=== PATIENT | female | born 1950 | race Caucasian/White ===

== ENCOUNTER 2017-11-12 21:46 | Inpatient (IN) | payer OTHER ==
[~2017-11-12] VITALS: Ht 175.3 cm; Wt 83.9 kg
--- NOTE | 2017-11-12 21:50 | ED PSYCHIATRIC COMPLAINT ---
History of Present Illness General Chief Complaint: Psychiatric Related Complaint Stated Complaint: BIBA, +SI Source: patient, police Exam Limitations: no limitations Vital Signs & Intake/Output Vital Signs & Intake/Output Vital Signs Date Time Temp Pulse Resp B/P B/P Pulse O2 O2 Flow FiO2 Mean Ox Delivery Rate 11/13 0041 96.5 74 20 128/62 95 Room Air 11/12 2148 96.0 80 20 147/73 97 Room Air ED Intake and Output 11/13 0000 11/12 1200 Intake Total 1000 Output Total Balance 1000 Intake, IV 1000 Patient 190 lb Weight Allergies Coded Allergies: NO KNOWN ALLERGIES (07/25/14) Triage Nurses Notes Reviewed? yes Onset: Gradual Duration: constant Timing: recent history Severity: severe Severity Numbers: 10 HPI: Patient is a 67-year-old female with a past medical history of depression hypertension hyperlipidemia was patient was brought in by police custody and ambulance for concerns of sending text messages to her daughter for thoughts of harming herself where police arrived on the scene and admitted that she wanted to hurt herself, she ingested 2 handfuls of ibuprofen. She lives in a private residence with son She does admit to drinking alcohol today (Hernan Brooks) Past History Travel History Traveled to [place] past 21 day No Medical History Any Pertinent Medical History? see below for history Cardiovascular: hypertension, HYPERLIPIDEMIA Psychiatric: depression Tetanus Vaccine: 07/25/14 Surgical History Surgical History: non-contributory Psychosocial History What is your primary language Faroese Family History Hx Contributory? No (Hernan Brooks) Review of Systems Review of Systems Constitutional: Reports: no symptoms. EENTM: Reports: no symptoms. Respiratory: Reports: no symptoms. Cardiovascular: Reports: no symptoms. GI: Reports: no symptoms. Genitourinary: Reports: no symptoms. Musculoskeletal: Reports: no symptoms. Skin: Reports: no symptoms. Neurological/Psychological: Reports: see HPI. Hematologic/Endocrine: Reports: no symptoms. Immunologic/Allergic: Reports: no symptoms. All Other Systems: Reviewed and Negative (Hernan Brooks) Physical Exam Physical Exam General Appearance: no apparent distress, alert, comfortable Head: atraumatic Eyes: Bilateral: normal appearance. Ears, Nose, Throat: hearing grossly normal Neck: normal inspection Respiratory: chest non-tender, no respiratory distress Cardiovascular: regular rate/rhythm Neurological/Psychiatric: no motor/sensory deficits, awake, depressed affect Appearance/Memory/Insight: appropriate appearance, appropriate insight Behavoir/Eye Contact/Speech: cooperative Thoughts/Hallucinations: normal thought pattern, no apparent hallucination Skin: intact, normal color SAD PERSONS SAD PERSONS Response Value Age <19 or >45 years? yes 1 Depression/Hopelessness? yes 2 Organized/Serious Attempt yes 2 Social Support? has support 0 Stated Future Intent? yes 2 Total 7 SAD PERSONS Done? yes (Keanu HARDY,Hernan) Progress Differential Diagnosis: drug intoxication, drug overdose, drug withdrawal, electrolyte abnormality, encephalitis, hypoglycemia, hypothyroidism, IC hem/mass /tumor, meningitis Plan of Care: Orders Procedure Date/time Status Regular Diet 11/13 B Active Continuous Observation Monitor 11/12 2152 Active URINE DRUG SCREEN FOR ER ONLY 11/12 2152 Complete ETHANOL 11/12 2152 Complete COMPREHENSIVE METABOLIC PANEL 11/12 2152 Complete CBC WITHOUT DIFFERENTIAL 11/12 2152 Complete ED CRISIS PSYCH CONSULT 11/12 2152 Active Current Medications Sig/Gustabo Start time Last Medication Dose Stop Time Status Admin Atorvastatin Calcium 40 MG DAILY 11/13 899 UNVr (Lipitor) Fluoxetine HCl 40 MG DAILY 11/13 899 UNVr (Prozac) Hydrochlorothiazide 12.5 MG DAILY 11/13 899 UNVr (Hydrodiuril) Levothyroxine Sodium 0.025 MG DAILY 11/13 899 UNVr (Synthroid) Lisinopril 20 MG DAILY 11/13 899 UNVr (Prinivil) Laboratory Tests 11/12/175: Urine Opiates Screen < 100, Methadone Screen < 40, Barbiturate Screen < 60, Ur Phencyclidine Scrn < 6.00, Amphetamines Screen < 100, U Benzodiazepines Scrn < 85, Urine Cocaine Screen < 50, Urine Cannabis Screen < 5.00 11/12/177: Anion Gap 14, Estimated GFR > 60, BUN/Creatinine Ratio 32.9 H, Glucose 105 H, Calcium 9.2, Total Bilirubin 0.4, AST 54 H, ALT 23, Alkaline Phosphatase 69, Total Protein 7.0, Albumin 4.2, Globulin 2.8, Albumin/Globulin Ratio 1.5, CBC w Diff NO MAN DIFF REQ, RBC 4.02 L, MCV 86.8, MCH 29.6, MCHC 34.1, RDW 13.6, MPV 7.6, Gran % 70.9, Lymphocytes % 17.5 L, Monocytes % 8.5, Eosinophils % 2.7, Basophils % 0.4, Absolute Granulocytes 6.9 H, Absolute Lymphocytes 1.7, Absolute Monocytes 0.8 H, Absolute Eosinophils 0.3, Absolute Basophils 0, Serum Alcohol 100.0 Patient upon initial presentation is in no apparent distress however does have depressed affect and concerns of depression and suicide ideation Patient denies any abdominal pain chest pain nausea vomiting or heartburn symptoms. Patient was prophylactically administered Protonix due to the ingestion of unknown Spons of July however she does state that she took approximately 20 tablets at 8 PM was approximately congestion time 0001-patient was reevaluated and will be on hold in the emergency room for further evaluation and will require a crisis consult, discussed handoff to Dr. De Paz Patient again resting comfortably at bedside nontender abdomen denies any symptoms Hand-Off Endorsed To: Flaquito De Paz MD Endorsed Time: 0100 Pending: consult (Hernan Brooks) Hand-Off Endorsed To: Jim Brown MD Endorsed Time: 0700 Pending: consult (Flaquito De Paz MD) Departure Departure Disposition: STILL A PATIENT Condition: Stable Clinical Impression Primary Impression: Depression Secondary Impressions: Alcohol use, Suicidal ideation Referrals: Francisca Batres MD (PCP/Family) Departure Forms: Customer Survey General Discharge Information (Hernan Brooks) PA/MANUFACTURING APPLICATIONS ENGINEER Co-Sign Statement Statement: ED Attending supervision documentation- [X] I saw and evaluated the patient. I have also reviewed all the pertinent lab results and diagnostic results. I agree with the findings and the plan of care as documented in the PA's/MANUFACTURING APPLICATIONS ENGINEER's documentation. [X] I have reviewed the ED Record and agree with the PA's/MANUFACTURING APPLICATIONS ENGINEER's documentation. [] Additions or exceptions (if any) to the PAs/MANUFACTURING APPLICATIONS ENGINEER's note and plan are summarized below: [] (Flaquito De Paz MD) Critical Care Note Critical Care Note Critical Care Time: 30-74 min (Hernan Brooks)
[2017-11-12 22:24] LABS: ABSOLUTE BASOPHIL COUNT 0 /CUMM (0.0-0.2); ABSOLUTE EOSINOPHIL COUNT 0.3 /CUMM (0.0-0.7); ABSOLUTE GRANULOCYTE CT 6.9 /CUMM (1.4-6.5); ABSOLUTE LYMPH COUNT 1.7 /CUMM (1.2-3.4); ABSOLUTE MONOCYTE COUNT 0.8 /CUMM (0.10-0.60); BASOPHIL % 0.4 % (0.0-2.0); EOSINOPHIL % 2.7 % (0-5); GRANULOCYTE % 70.9 % (42.2-75.2); HEMATOCRIT 34.9 % (37-47); MEAN CORPUSCULAR HGB 29.6 PG (27.0-31.0); MEAN CORPUSCULAR HGB CONC 34.1 G/DL (33.0-37.0); MEAN CORPUSCULAR VOLUME 86.8 FL (81.0-99.0); MEAN PLATELET VOLUME 7.6 FL (7.4-10.4); PLATELET COUNT 251 /CUMM (130-400); RBC DISTRIBUTION WIDTH 13.6 % (11.5-14.5); RED BLOOD CELL CT 4.02 /CUMM (4.20-5.40); WHITE BLOOD CELL COUNT 9.7 /CUMM (4.8-10.8)
[2017-11-13] MEDS ORDERED: FLUOXETINE HCL40 M1 PO (08:11)
[2017-11-13] MEDS ORDERED: LISINOPRIL-HCT1 EACH PO (08:11)
[2017-11-13] MEDS ORDERED: ATORVASTATIN CA40 M1 PO (08:12)
[2017-11-13] MEDS ORDERED: LEVOTHYROXINE25 MCG PO ×2 (08:12)
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
[2017-11-13 17:36] VITALS: BP 115/56
[2017-11-13 20:02] VITALS: BP 115/56
--- NOTE | 2017-11-14 02:57 | History & Physical ---
General Information and HPI History of Present Illness: This is a 67-year-old female with a past medical history significant for hypertension hyperlipidemia and hypothyroidism who was admitted to the inpatient psychiatry unit for suicide attempt by taking approximately 20 ibuprofen. Allergies/Medications Allergies: Coded Allergies: NO KNOWN ALLERGIES (07/25/14) Home Med list Atorvastatin Calcium 40 MG TABLET 1 TAB PO DAILY CHOLESTEROL (Reported) Fluoxetine HCl 40 MG CAPSULE 1 CAP PO QAM MENTAL HEALTH (Reported) Levothyroxine Sodium 25 MCG TABLET 1 TAB PO MoTuWeThFr THYROID (Reported) Levothyroxine Sodium 25 MCG TABLET 2 TAB PO SuSa THYROID (Reported) Lisinopril/Hydrochlorothiazide (Lisinopril-Hctz 20-12.5 MG Tab) 20 MG-12.5 MG TABLET 1 TAB PO DAILY HEART (Reported) Compliance With Home Meds: UNKNOWN Past History Travel History Traveled to [place] past 21 day No Medical History Blood Transfusion Hx: No Cardiovascular: hypertension, HYPERLIPIDEMIA Respiratory: COPD Psychiatric: depression 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 Exam & Diagnostic Data Last 24 Hrs of Vital Signs/I&O Vital Signs Date Time Temp Pulse Resp B/P B/P Pulse O2 O2 Flow FiO2 Mean Ox Delivery Rate 11/13 2001 98.9 88 115/56 11/13 1736 98.7 88 115/56 11/13 1711 98.2 72 144/68 99 11/13 1518 98.4 70 20 136/77 96 11/13 1146 98.7 74 18 154/79 95 Room Air Room Air 11/13 0900 97.9 76 20 149/66 08 0557 97.9 76 20 149/66 97 Room Air Intake & Output 11/14 0800 11/14 0000 11/13 1600 Intake Total Output Total Balance Patient 83.915 kg Weight Physical Exam General Appearance Alert Skin No Rashes Cardiovascular Regular Rate, Normal S1, Normal S2, No Murmurs Lungs Clear to Auscultation Abdomen Normal Bowel Sounds, Soft, No Tenderness Assessment/Plan Assessment: This is a 67-year-old female with a past medical history significant for hypertension, hyperlipidemia, hypothyroidism admitted to the inpatient psychiatry unit for a suicide attempt by overdosing on ibuprofen. Currently she is medically stable. recommendations include to continue her home regimen and consider checking a TSH level if not done recently. As Ranked By This Provider Problem List: 1. Depression 2. Suicidal ideation 3. Alcohol use Core Measures/Misc (12/30) Acute Coronary Syndrome ACS Diagnosis: No Congestive Heart Failure Congestive Heart Failure Diagnosis No Cerebrovascular Accident CVA/TIA Diagnosis: No VTE (View Protocol) VTE Risk Factors No risk factors No Mechanical VTE Prophylaxis d/t LowRisk-No Interven Req'd No VTE Pharm Prophylaxis d/t LowRisk-No Interven Req'd Sepsis (View protocol) Sepsis Present: No If YES complete Sepsis Event Note If YES complete Sepsis Event Note
[2017-11-14 07:42] VITALS: BP 120/69
--- NOTE | 2017-11-14 10:19 | CPS PROVIDER INIT ASMT PSYCH ---
Psychiatric Admission Vessel Engineer's Note Reviewed: Yes Patient Seen and Examined: Yes (Seen with Social Work Taxonomist.) Identifying Information: 67 yo WWF with apparent hx depression, who was admitted on 11/13/17 on a voluntary basis, referred by ER. Chief Complaint: Overdosed with "maybe 20" ibuprofen while intoxicated. Reaction to Hospitalization: So-so. Feels she needs to be here, wants to get her life together, wishes she didn't have to be here in order to do that. History of Present Illness Onset of Illness: Reports last 11 years have been difficult, as she lost her , both parents and a number of friends to cancer. Recently stressed about son who has bipolar disorder and recent argument with a daughter. Circumstances Leading to Admission: Ibuprofen OD while intoxicated. Drinking 1 bottle of wine/day. Problem(s) Justifying Need for Admission: OD. Other HPI: "Well, I was drinking too much (~1 bottle) wine and took a bunch of ibuprofen, like a handful." Had a weekend in [place]. Under stress. Had stressful conversation with daughter. Stressed caring for bipolar son. [place] kind of useless. Thought maybe everyone would be better off with her life insurance. Wants to survive. Has trip to [facility] in the fall and a pass to [facility]. Sleep: good last night, MNA at home. Minimal coffee use. (Sleep likely disturbed from alcohol.) Appetite: probably too good sometimes. Denies weight change. Energy: it's okay, a little tired at the end of the workday. Tolerating current medications well, without complaint. Case and treatment plan discussed in team meeting. Denying SI. Tearful and depressed. Worried about son with bipolar disorder. Past Psychiatric History Past Diagnosis(es)- if any: Likely depression. Past Precipitating Factors- if any: Deaths of family members/friends. - Include inpatient and outpatient treatment Treatment History: Seeing PCP Dr. Batres. Past therapy, none in years. Inpatient: none. History of Suicide Attempts or Gestures No prior attempts or self-harm. Substance Abuse History: Quit tobacco 15 years ago. Alcohol: 1 bottle of wine/day x years. Denies DTs or withdrawal seizures. No drugs. Allergies: Coded Allergies: NO KNOWN ALLERGIES (07/25/14) Home Med List: Lipitor 40 mg daily Prozac 40 mg daily Levothyroixine 0.25 mg daily - and 0.5 mg daily Sat/Sun Lisinopril/HCTZ 20/12.5 daily, coming off HCTZ because of urinary frequency - Include any medical condition(s) that may - impact the patient's recovery/remission Past Medical History: HTN Mild COPD Hyperlipidemia Hyponatremia now Hypothyroidism Past History Medical History Blood Transfusion Hx: No Cardiovascular: hypertension, HYPERLIPIDEMIA Respiratory: COPD Psychiatric: depression LABEL TACKER/Reproductive: FRANKIE History of MRSA: Yes History of VRE: No History of CDIFF: No Isolation History: Standard Tetanus Vaccine: 07/25/14 Surgical History Surgical History: none Psychiatric Family/Social Hx Family History Psychiatric Illness: Son: bipolar, had ECT. Pat aunt, PGM, brother: depression. Mother: psychological issues. Substance Use: Sister drinks wine. Suicides: Son attempted a few times. Social History Living Situation: Lives with 46 yo son. Significant Relationships (family/friends): Has 2 daughters, 43 and 40, and son, 46. 11/27/06, likely from [place]. Parents are . Sister in [facility]. A brother at age 15 from a brain aneurysm. Brother in [place]. Education: A couple of years of college. 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 Legal: No arrest. Healthly Behaviors Screening Tobacco Screening Tobacco Use from ED Docu: Never used - If tobacco counseling indicated - the following topics are required. - #1 Recognizing dangerous situations. - #2 Coping Skills. - #3 Basic information about quitting. Status of Tobacco Cessation Counseling: Not Applicable Cessation Med Status Not Applicable Alcohol Screening - ETOH screen POS if BAL >=80 or Audit-C>= M4/F3 Audit-C Score from Diag Assess: 10 Blood Alcohol Level: Laboratory Tests 11/12 2206 Toxicology Serum Alcohol (<10 MG/DL) 100.0 Alcohol Use Screening Results: Pos per Audit C &/or BAL - If ETOH counseling indicated - the following topics are required. - #1 Express concern about the patient's - drinking at unhealthy levels, include informing - of national norms for moderate drinking: - men <= 14 drinks/week, max 4 drinks/occasion - women <= 7 drinks/week, max 3 drinks/occasion - #2 Providing feedback, including linking alcohol to - negative physical effects (liver injury, hypertension) - negative emotional effects (relationship problems and - depression) - negative occupational consequences (reduced work - performance) - #3 Advising the patient to abstain from alcohol or - to drink below national norms for moderate drinking - (as listed above). Status of ETOH Use Counseling: #1, #2 AND #3 Completed. Metabolic Screening - Screen if on a Neuroleptic Medication - Metabolic screening should include: - Blood Pressure, BMI, Glucose or Hgb A1c, & a - Lipid profile from within the past 365 days. Metabolic Screening ([x]) Not Applicable, patient not on a neuroleptic. OR () Patient on a neuroleptic(s) . Enter below results for Hemoglobin A1C, and lipid panel if obtained during the last 365 days. BMI: 27.000 Blood Pressure: 140/78 Laboratory Results From [facility] (If applicable): Exam and Plan Mental Status Examination Ambulation Status: Gait unremarkable. Appearance: Casually dressed WF in NAD. Attitude towards examiner: Calm, polite and cooperative. Psychomotor activity: There is no psychomotor agitation/retardation. Behavior: Unremarkable. Quality of speech: Normal in volume, rate and tone. Affect: Calm and blunted to euthymic. Mood: "Fine, a little anxious, but I'm fine." Sad probably ~7/10. Anxiety 7-8/10. Denies feeling hopeless, helpless, worthless or guilty. Suicidal Ideation: Denies active and passive SI. Reports future-focus. Homicidal Ideation: Denies HI. Hallucinations: Denies AH and VH. Paranoid/Delusional Material: Denies PI and magical hayden. Difficulties with thought organization: None. Insight: Good. Judgment: Was poor, improved now. Orientation: Ox3. Cognition: Grossly intact. Memory Function: Grossly intact. Estimate of intellectual functioning: Average. Assets/Strengths Patient Identified Assets/Strengths: Sense of humor. Good oriental rug repairer. Stain glass. Impression/Plan Impression and Plan: The patient is here after an intentional ibuprofen OD while intoxicated. She has some family stressors that may have contributed. - Include all active medical diagnosis that require tx DSM 5 Diagnosis(es): Unspecified depression. Alcohol use disorder. Hypertension. HLD. Hypothyroidism. Mild COPD. Hyponatremia. - Initial Tx Plan for Active Psych & Medical Conditions Treatment Plan: The patient will be monitored on the unit for safety, alcohol withdrawal and mood disorder. We will check repeat lytes in am. Low sodium could be due to HCTZ and/or Prozac. I tried to call Dr. Batres and she will be away until next Saturday. Consider discontinuation of HCTZ. Consider increase in Prozac dose if sodium improves. A family meeting will be important. Anticipate once clinically stable, that the patient will be discharged to home and son and be referred to IOP. - Factors that would help patient function - in a less restrictive setting. Factors: Not suicidal.
--- NOTE | 2017-11-14 11:16 | SOCIAL WORKER PROG NOTE PSYCH ---
Social Work Progress Note Progress Note I Giuseppe Chirinos ([facility] sport intern) along with Doctor Zhang (psychiatrist) met with Radha this morning. She appeared well groomed wearing a Tshirt and shorts. She was alert, cooperative, and engaged in session. She reported having mixed feelings about being in the hospital since this is her first inpatient hospitalization. She understands that she ended up here due to her recent suicide attempt which was made by taking a handful of ibuprofen along with drinking alcohol. Dr Zhang did some alcohol counseling with the patient informing her of the harmful effects of substance use. The patient reported drinking one bottle of wine everyday for years. Radha has only stopped drinking for one to two days and did not experience withdrawl symptoms. She has not been to a therapist in years. She has experienced several life stressors that include: her dying eleven years ago, a brother along with her parents , friends passing away due to cancer,and currently living with her adult son who has Bipolar disorder. The patient expressed that she was glad she survived the suicide attempt. As a survivor she can go on her planned trip and learn how to ski.The patient identified that there is a family history of depression. She mentioned she used to smoke. Her son also made a suicide attempt in the past. The patient questions whether she is helping or hindering her son with Bipolar Disorder. On a scale of 0 to 10 ( zero being absent and 10 being severe) the patient reported both anxiety and depression to be a seven today. She is not having any trouble eating or sleeping here on the unit thus far. The patient intends to reduce alcohol use and is agreeable to doing an evening dual IOP at [place]. The patient was also agreeable to have a family meeting. I called Elizabeth (her daughter) and left a voicemail to schedule a family meeting with her, Claudia (her daughter), and Radha's son
[2017-11-14 12:04] VITALS: BP 140/78
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
--- NOTE | 2017-11-14 14:58 | SOCIAL WORKER TX PLAN PSYCH ---
Treatment Plan - Please Document: - Evidence that there is ongoing collaboration between - the patient and the interdisciplinary team, - including the patient's active participation and - responsibility for engaging in the treatment regimen, - and that the treatment plan is individualized and - relevant to the patient's conditions. - Treatment plan should reflect documentation indicating - that all active therapeutic efforts are included. Strengths/Capabilities: 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 Patient has family support Physical Limitations (Interventions): none Patient Identified Trmt Goals: "I want to get my life together" The patient no longer wants to feel symptoms of depression. Discharge Plan: To be on medications that do not cause her to have a low sodium level. The discharge plan would be for her to return home to her son once her mood and medications are stable. The patient is agreeable to do an evening IOP. Problem/Goals #1 Problem #1: depression Goal (Short Term): The patient will be able to identify triggers and symptoms of her depression. The patient with meet with her psychiatrist daily to discuss her medications and any side effects she experiences. Goal (Half-Way): The patient will be able to identify three coping skills to help her manage symptoms of depression. Interventions: The patient can benefit from several groups on the unit that include: focus group, meditations, journaling and a coping skills group. The patient will work with the nursing home social worker to reframe negative thoughts. Modalities: Motivational interviewing Problem/Goals #2 Problem #2: alcohol dependence/abuse Goal (Short Term): The client will be monitored on the unit for safety and monitored for withdrawl symptoms. Goal (Half-Way): The client will continue to learn about the harmful effects of alcohol and identitify alternative ways to deal with stress. Interventions: The patient will work with her nursing home social worker to change her thoughts relating to her drinking behaviors. The patient will identify triggers to drinking and can attent AA meetings. Modalities: Cognitive Behavioral Therapy DSM5/PS Stressors/Medical Prob Diagnosis' (DSM 5, Stressors, Medical): Unspecified Depressive Disorder F 32.9 Alcohol Use Disorder, moderate F 10.20 Current GAF: 27 Treatment Team - Responsibilities of members of the treatment team include: - Medication Management- MD or FORM SETTER STEEL FORMS - Medication Administration and Monitoring- Nurse - Group Therapy- Occupational Therapist - 1:1 Therapy,Disch Planning,family involvement-Garden Equipment Mechanic
[2017-11-14 16:11] VITALS: BP 113/61
[2017-11-14 19:31] VITALS: BP 128/73
[2017-11-14 20:12] VITALS: BP 128/73
[2017-11-14 23:13] VITALS: BP 146/78
[2017-11-15 07:44] VITALS: BP 116/64
[2017-11-15 07:49] VITALS: BP 116/64
--- NOTE | 2017-11-15 10:40 | SOCIAL WORKER PROG NOTE PSYCH ---
Social Work Progress Note Progress Note I Giuseppe Chirinos ([facility] Development And Planning Engineer) met with Radha this morning in [facility]. She was cooperative and engaged in the conversation. I informed the patient that I called her daughter and did not hear back from her. The patient called the daughter and had her call Goldie Dowd's main line. The patient described having trouble sleeping last night due to having restless legs. She was able to take a medication for this and then able to fall asleep. Radha expressed her interest in reading while on the unit and at home. She mentioned how she used to read with her before he past away. She described her mood as "okay". She expressed being grateful that she had 15 years with her son before he from a brain aneurysm. She informed me that all her children were from her first . She is grateful that her daughter Elizabeth (who is a manager social work ) is in state and is staying with her son that is living at home. Radha feel that her daughter Elizabeth can help her son doing IT work so he can be out of the house and socialize. Radha explained she feels the need to be home to provide her son social support. I spoke with the daughter Elizabeth and a family meeting is scheduled for 2:00pm today. The family meeting occurred at today at 2:00. Dr. Zhang, Goldie Dowd, P.A student, this chart writer([facility] dietetic intern), the patient, son (Jose Guadalupe),daughter (Elizabeth), and sister via phone (Denise) were present. In the meeting an aftercare plan was discussed along with current progress. Potential triggers to alcohol usage was brought up in conversation. The daughter and son are supportive and seem motivated to help their mother despite their mother not wanting to accept help. The patient refused antabuse when asked in the meeting and was ambivalent about her son getting rid of the alcohol. She is in the precontemplative to contemplative stage of recovery.
--- NOTE | 2017-11-15 11:53 | Event Note ---
Event Note Event Note: I was asked by Dr. Zhang to follwo this patient's BP and Na levels. She was slightly hyponatremic yesterday. Her HCTZ was held on this admission. Reviewed her vitals and Blood work this am. Pt currently on 20 mg of Lisinopril. BP stable on current regimen and Na has normalized. Continue Lisinopril at current dose for now and hold HCTZ. If BP starts to go up then will make adjustments in meds.
[2017-11-15 12:17] VITALS: BP 114/75
--- NOTE | 2017-11-15 15:03 | CP SOUTH PROGRESS NOTE PSYCH ---
Psych (Inpt) Progress Note Progress Note Include the following elements, when applicable: Involvement in the active treatment of the patient with behavioral observations of the patient and the patient's response to the treatment. Review of the ongoing treatment process in the context of the treatment plan. Indication of how multi-disciplinary staff members are carrying out the treatment plan. Plans for future interventions and recommendations for revision of the treatment plan. Liaison with other physicians/providers. Progress Note: Case and treatment plan discussed in team meeting. Staff reports that the patient is denying suicidal ideation. Reporting that she is not thrilled to be here. Appearing depressed and anxious. Not showing signs of alcohol withdrawal. Patient seen at 10:13 AM with ANTONY harmon. Patient was in group prior to meeting with us in office. Patient was informed that electrolytes today are normal. Patient feels a little tired today. Reports she had difficulty falling asleep and restless legs last night but Neurontin help. Affect is calm and blunted. Reports mood is fine. Rates sad mood 2/10 and anxiety 2/10. Denies feeling hopeless, helpless, worthless or guilty. Denies active and passive suicidal ideation. Denies homicidal ideation. Denies auditory and visual hallucinations and paranoid ideation. Denies alcohol withdrawal symptoms. Appetite is good. Energy: reports she feels tired. Blood pressure is 116/64. Patient agrees to increase Prozac dose to 50 mg daily. I informed the patient that we will repeat electrolytes on Saturday morning. I attended family meeting with patient, son, daughter, sister by phone, social service agency director and ANTONY harmon. Patient's and family's questions were addressed. Patient is not interested in Antabuse. IMPRESSION: Slow progress. Continue present treatment plan. Anticipate likely discharge by midweek next week to [facility] and home. Monitor response to increase in Prozac dose to 50 mg daily. I spoke with Dr. Duvall yesterday about stopping hydrochlorothiazide, and she had no objection. We continue to monitor for any increase in blood pressure.
[2017-11-15 15:38] VITALS: BP 124/68
[2017-11-15 19:34] VITALS: BP 101/52
[2017-11-15 19:48] VITALS: BP 101/52
[2017-11-16 07:37] VITALS: BP 106/67
[2017-11-16 07:39] VITALS: BP 106/67
[2017-11-16 11:58] VITALS: BP 120/67
--- NOTE | 2017-11-16 12:30 | CP SOUTH PROGRESS NOTE PSYCH ---
Psych (Inpt) Progress Note Progress Note Pt notes that she is well today. She denies cravings for alcohol. She notes that sleep has been difficult with some restless leg but gabapentin has been helpful. SHe spoke with her daughter yesterday who spoke with her boss and was reassured that she still has employment. This was a weight lifted off of her shoulders. SHe denies SI or HI. Current Medications Sig/Gustabo Start time Last Medication Dose Route Stop Time Status Admin Acetaminophen 650 MG Q6P PRN 11/14 1045 AC PO Al Hydroxide/Mg 30 ML Q4-6 PRN PRN 11/13 1600 AC Hydroxide PO Atorvastatin Calcium 40 MG DAILY 11/13 09 AC 11/16 PO 0839 Cholecalciferol 2,000 IU DAILY 11/14 1034 AC 11/16 PO 0840 Fluoxetine HCl 40 MG DAILY 11/16 09 AC 11/16 PO 0840 Fluoxetine HCl 10 MG DAILY 11/16 09 AC 11/16 PO 0840 Folic Acid 1 MG DAILY 11/14 1033 AC 11/16 PO 11/17 0901 0839 Gabapentin 200 MG AT BEDTIME 11/16 2100 AC PO Gabapentin 100 MG Q6P PRN 11/14 1015 AC 11/15 PO 2015 Levothyroxine Sodium 0.05 MG Gillis@11/17 0700 AC PO 11/18 0659 Levothyroxine Sodium 0.05 MG Sa@11/16 0700 DC PO 11/17 0659 Levothyroxine Sodium 0.05 MG Sa@11/16 0700 AC 11/16 PO 11/17 0659 0646 Levothyroxine Sodium 0.025 MG MoTuWeThFr@11/14 1030 AC 11/15 PO 0704 Lisinopril 20 MG DAILY 11/13 0900 AC 11/16 PO 0840 Lorazepam 2 MG Q2P PRN 11/14 1045 AC PO Lorazepam 1 MG Q2P PRN 11/14 1045 AC PO Magnesium Hydroxide 30 ML AT BEDTIME PRN 11/13 1600 AC PO Multivitamins 1 TAB DAILY 11/14 1033 AC 11/16 PO 0840 Olanzapine 5 MG Q12P PRN 11/14 1015 AC IM Thiamine HCl 100 MG DAILY 11/14 1033 AC 11/16 PO 11/17 0901 0840 Laboratory Tests 11/15 0620 Chemistry Sodium (137 - 145 mmol/L) 139 Potassium (3.5 - 5.1 mmol/L) 4.5 Chloride (98 - 107 mmol/L) 101 Carbon Dioxide (22 - 30 mmol/L) 30 Anion Gap (5 - 16) 8 Vital Signs Date Time Temp Pulse Resp B/P B/P Pulse O2 O2 Flow FiO2 Mean Ox Delivery Rate 11/16 1158 78 120/67 11/16 0840 85 106/11/16 0739 97.4 85 106/11/16 0737 97.4 85 11/15 1948 95.9 79 101/11/15 1934 95.9 79 10111/15 1538 76 124/68 MSE Appearance: as stated age Speech : nl rate, rhythm, volume and prosody Behavior: cooperative Motor: + psychomotor retardation Mood : fine! Affect : flat, non-labile, not irritable, appropriate, constricted Thought process: linear and goal directed Thought content : no delusions or paranoia Perceptions: denied AVHs, denied SI or HI Insight: poor Judgment: poor A/P: Pt with hx of the MDD +SI and AUD now with improved mood. - Continue current medication regimen.
[2017-11-16 16:56] VITALS: BP 109/62
[2017-11-16 19:37] VITALS: BP 118/64
[2017-11-16 19:56] VITALS: BP 131/76
[2017-11-17 07:35] VITALS: BP 145/76
[2017-11-17 07:44] VITALS: BP 145/76
[2017-11-17 11:59] VITALS: BP 114/64
--- NOTE | 2017-11-17 12:24 | CP SOUTH PROGRESS NOTE PSYCH ---
Psych (Inpt) Progress Note Progress Note Pt ntoes that she is well. SLept well. Had visit from children and family whom are supportive. Denies SI or HI. Current Medications Sig/Gustabo Start time Last Medication Dose Route Stop Time Status Admin Acetaminophen 650 MG Q6P PRN 11/14 1045 AC PO Al Hydroxide/Mg 30 ML Q4-6 PRN PRN 11/13 1600 AC Hydroxide PO Atorvastatin Calcium 40 MG DAILY 11/13 0900 AC 11/17 PO 0745 Cholecalciferol 2,000 IU DAILY 11/14 1034 AC 11/17 PO 0745 Fluoxetine HCl 40 MG DAILY 11/16 09 AC 11/17 PO 0745 Fluoxetine HCl 10 MG DAILY 11/16 09 AC 11/17 PO 0745 Folic Acid 1 MG DAILY 11/14 1033 DC 11/16 PO 11/17 0901 0839 Gabapentin 200 MG AT BEDTIME 11/16 2100 AC 11/16 PO 2159 Gabapentin 100 MG Q6P PRN 11/14 1015 AC 11/15 PO 2015 Levothyroxine Sodium 0.05 MG Gillis@11/17 0700 AC 11/17 PO 11/18 0659 0621 Levothyroxine Sodium 0.05 MG Sa@11/16 0700 DC 11/16 PO 11/17 0659 0646 Levothyroxine Sodium 0.025 MG MoTuWeThFr@11/14 1030 AC 11/15 PO 0704 Lisinopril 20 MG DAILY 11/13 0900 AC 11/17 PO 0745 Lorazepam 2 MG Q2P PRN 11/14 1045 AC PO Lorazepam 1 MG Q2P PRN 11/14 1045 AC PO Magnesium Hydroxide 30 ML AT BEDTIME PRN 11/13 1600 AC PO Multivitamins 1 TAB DAILY 11/14 1033 AC 11/17 PO 0745 Olanzapine 5 MG Q12P PRN 11/14 1015 AC IM Thiamine HCl 100 MG DAILY 11/14 1033 DC 11/16 PO 11/17 0901 0840 Laboratory Tests 11/15 0620 Chemistry Sodium (137 - 145 mmol/L) 139 Potassium (3.5 - 5.1 mmol/L) 4.5 Chloride (98 - 107 mmol/L) 101 Carbon Dioxide (22 - 30 mmol/L) 30 Anion Gap (5 - 16) 8 Vital Signs Date Time Temp Pulse Resp B/P B/P Pulse O2 O2 Flow FiO2 Mean Ox Delivery Rate 11/17 1159 84 114/64 11/17 0745 97.3 71 145/76 11/17 0744 97.3 71 145/76 11/17 0635 97.3 71 145/76 11/17 1955 97.9 93 131/76 11/16 1936 97.9 78 118/64 11/16 1656 75 109/62 MSE Appearance: as stated age Speech : nl rate, rhythm, volume and prosody Behavior: cooperative Motor: + psychomotor retardation Mood : good Affect : flat, non-labile, not irritable, appropriate, constricted Thought process: linear and goal directed Thought content : no delusions or paranoia Perceptions: denied AVHs, denied SI or HI Insight: poor Judgment: poor A/P: Pt with hx of the MDD +SI and AUD now with improved mood. - Continue current medication regimen.
[2017-11-17 16:20] VITALS: BP 119/57
[2017-11-17 20:02] VITALS: BP 133/71
[2017-11-17 20:04] VITALS: BP 133/71
[2017-11-18 07:58] VITALS: BP 120/76
[2017-11-18 08:00] VITALS: BP 120/76
--- NOTE | 2017-11-18 09:13 | SOCIAL WORKER PROG NOTE PSYCH ---
Social Work Progress Note Progress Note Met with Radha this morning. She reported having some visitors over the weekend. She was disappointed/ hurt that her daughter Claudia has not visited or been supportive. She got a little teary eyed when discussing it. She denies any cravings to drink right now. We talked about what she will be doing to change her patterns once home. She plans to do IOP in the evening/ AA/ and work on hobbies at home. She enjoys [employer] making and working with [employer]. She hasn't been doing those things in some time. She talked about some of the triggers to her suicide attempt. Sometimes she feels that she can't do anything right and that the way her sister was treating her reminded her of her Mother. She talked about how her sister drinks too much wine and has her own issues. She will be avoiding going to [place] for some time due to that being a triggering place where her and her family drink. Right now she seems focused on managing herself and isn't worried about how that might impact her relationship with her sister. Hasn't slept that well while here, due to restless legs and hearing other patients throughout the night. Reports her mood is good. Future oriented. Talking about the vacation she has planned to [place] in January for her 68th birthday. Left clinical for [place] at [facility]. Received a message stating it was being referred for a peer to peer review for tomorrow and today is the last covered day. Called [facility] to schedule an intake for tomorrow. We will d/c tomorrow vs. . Intake is scheduled for 11:30 11/20.
--- NOTE | 2017-11-18 14:44 | CP SOUTH PROGRESS NOTE PSYCH ---
Psych (Inpt) Progress Note Progress Note Include the following elements, when applicable: Involvement in the active treatment of the patient with behavioral observations of the patient and the patient's response to the treatment. Review of the ongoing treatment process in the context of the treatment plan. Indication of how multi-disciplinary staff members are carrying out the treatment plan. Plans for future interventions and recommendations for revision of the treatment plan. Liaison with other physicians/providers. Progress Note: Dr. Chi's notes reviewed. Case and treatment plan discussed in team meeting. Staff reports that the patient is denying suicidal ideation. Had a pretty good weekend. No longer requires CIWA. Patient seen at 12:03 PM. She was in group prior to meeting with me in office. States "I'm good." Complains of having restless legs at night, which she has had trouble with intermittently since childhood. I advised her to see her PCP about this. Reports she had a hard time sleeping. Electrolytes this morning were normal. Affect is calm and blunted. Rates sad mood and anxiety both /10. Denies feeling hopeless, helpless, worthless or guilty. Denies active and passive suicidal ideation. Denies homicidal ideation. Denies auditory and visual hallucinations and paranoid ideation. Describes appetite as fine. Tolerating medications well, without complaint. Agrees to an increase in gabapentin dose to 300 mg at bedtime. Blood pressure seems well-controlled. IMPRESSION: Slow progress. Continue present treatment plan. Anticipate discharge tomorrow to home and son with referral to [facility].
[2017-11-18 19:44] VITALS: BP 124/55
[2017-11-19 07:35] VITALS: BP 120/74
--- NOTE | 2017-11-19 08:46 | SOCIAL WORKER PROG NOTE PSYCH ---
Social Work Progress Note Progress Note Received a call from [facility] that Radha (Ara) could be seen today for intake at 1:15pm instead of tomorrow. Informed Ara of this information. She was pleased to hear. She plans to contact her son upon discharge. He will schedule an Uber to pick her up after her intake. She is eager to sleep in her own bed, since she hasn't been able to sleep well here. She is looking forward to resuming some activities at home and attending AA. Remains disappointed that she still hadn't heard from her daughter Claudia. She basically feels this is par for the course with her. Accepting that it is what it is right now. Encouraged her to reach out to supports if she should be having a hard time or SI- mentioned crisis, suicide hotline, and [facility] as resources. She said she does struggle with reaching out and that is something she needs to work on. She was interested in obtaining information on [facility] as a possible resource for her son. I will give her this information.
[2017-11-19 09:25] VITALS: BP 120/74
[2017-11-19] MEDS ORDERED: LISINOPRIL20 M1 PO (10:19)
[2017-11-19] MEDS ORDERED: ONE DAILY MULT1 EAC2 PO (10:19)
[2017-11-19] MEDS ORDERED: FLUOXETINE HCL10 M2 PO (10:19)
[2017-11-19] MEDS ORDERED: VITAMIN D31000 UNI2 PO (10:19)
[2017-11-19] MEDS ORDERED: GABAPENTIN300 M2 PO (10:19)
[2017-11-19] MEDS ORDERED: FLUOXETINE HCL40 M1 PO (10:19)
--- NOTE | 2017-11-19 10:24 | Patient Discharge Instructions ---
Psych Discharge Inst General Discharge Information Reason for Admission: Overdosed with ibuprofen while intoxicated. Psy Discharge Primary Diag+ Unspecified depression Psy Discharge Secondary Diag+ Alcohol use disorder Hypertension Hyperlipidemia Hypothyroidism Mild COPD Hyponatremia (resolved) Summary Tests/Major Procedures Lab ALT 23 U/L 11/12/172206 AST 54 U/L H 11/12/172206 BUN 23 mg/dL H 11/12/172206 BUN/Creatinine Ratio 32.9 % H 11/12/17 220 Carbon Dioxide 27 mmol/L 11/18/17 0645 Chloride 96 mmol/L L 11/12/172206 Chloride 103 mmol/L 11/18/17 0645 Creatinine 0.7 mg/dL 11/12/172206 Estimated GFR > 60 ml/min 11/12/172206 Glucose 105 mg/dL H 11/12/172206 Potassium 4.5 mmol/L 11/18/17 0645 Sodium 132 mmol/L L 11/12/172206 Sodium 139 mmol/L 11/15/17 0620 Sodium 140 mmol/L 11/18/17 0645 TSH &T3 &Free T4 Intrp 4.170 uIU/mL 11/12/172206 Absolute Granulocytes 6.9 /CUMM H 11/12/172206 Absolute Monocytes 0.8 /CUMM H 11/12/172206 Hct 34.9 % L 11/12/172206 Hgb 11.9 G/DL L 11/12/172206 Lymphocytes % 17.5 % L 11/12/172206 Plt Count 251 /CUMM 11/12/172206 RBC 4.02 /CUMM L 11/12/172206 WBC 9.7 /CUMM 11/12/172206 Serum Alcohol 100.0 MG/DL 11/12/172206 Studies Pending at DC: None. Patient Instructions Contact Information Your Psychiatrist on [facility] was Pj Zhang MD * If you are experiencing an emergency related to this hospitalization, please call [phone] to contact the treating psychiatrist or the psychiatrist-on- call. * To Request a copy of your medical records, please contact the Medical Records Department at [phone]. * To request results of studies pending at the time of discharge, please call [phone]. * Continue your Medications until directed to stop by your Healthcare provider. General Medication Information Please continue to take your new medications and your continued home medications , unless otherwise indicated on your discharge medication list, or unless directed by your MD or MANAGER SHIP to stop them. Special Instructions Diet Regular Activity Normal Other Inst/Recommendations Stay clean&sober. See PCP about LFTs, sodium, thyroid, general care. - Tobacco Use Treatment Offered Post DC Medications Offered: Not Applicable Post DC Tobacco Treatment Plan: Not Applicable - EtOH/Drug Use D/O Treatment Offered Post DC Medications Offered: Ref Med EtOH/Drug Use D/O (Refused Antabuse.) Post DC EtOH/SubAbuse TX Plan: [facility] SubAbuse/Dual IOP Program Appt Date: 11/19/17 Program Appt Time: 1315 Metabolic Screening ([x]) Not Applicable, patient not on a neuroleptic. OR () Patient on a neuroleptic(s) . Enter below results for Hemoglobin A1C, and lipid panel if obtained during the last 365 days. BMI: 27.000 Blood Pressure: 120/74 Laboratory Results From [facility] E[facility] (If applicable): Advance Directives Does the Patient have Medical Advance Directives Yes/Copy not provided Does Pt have Psychiatric Advance Directives? No/Refused further info Does Patient have a Designated Surrogate Decision Maker: No Information About Psychiatric Advance Directives Provided? Refused Discharge Plan Post Hospital Treatment Plan: [facility] IOP intake today. Return to home and son. Please see PCP recommended.
--- NOTE | 2017-11-19 13:18 | SOCIAL WORKER PROG NOTE PSYCH ---
Social Work Progress Note Faxed Referral(s) Referred To: [facility] Transition of Care Documents sent: Health Summary Faxed to: [facility] Fax #: [phone] Faxed by: Goldie Dowd Date faxed: 11/19/17 Time Faxed: [phone]
--- NOTE | 2017-11-19 16:23 | CP SOUTH PROGRESS NOTE PSYCH ---
Psych (Inpt) Progress Note Progress Note Include the following elements, when applicable: Involvement in the active treatment of the patient with behavioral observations of the patient and the patient's response to the treatment. Review of the ongoing treatment process in the context of the treatment plan. Indication of how multi-disciplinary staff members are carrying out the treatment plan. Plans for future interventions and recommendations for revision of the treatment plan. Liaison with other physicians/providers. Progress Note: Case and treatment plan discussed in team meeting. Staff reports that the patient is denying suicidal ideation. Doing very well. Happy to be leaving. Has IOP intake at 1:15 pm. Patient seen at 10:42 AM with medical student. Patient was in group prior to meeting with us in office. Affect is calm and euthymic. States "I'm good." Has no complaints. Reports the overdose "was a stupid thing to do." Mood is fine. Rates sad mood and anxiety both 0/10. Denies feeling hopeless, helpless, worthless or guilty. Denies active and passive suicidal ideation. Denies homicidal ideation. Denies auditory and visual hallucinations and paranoid ideation. Reports she slept a little bit better but has had some difficulty falling asleep here. Reports appetite and energy are fine. Tolerating medications well, without complaint. Plans to go to IOP intake at 1:15 PM and then return to home and son. Feels ready and safe for discharge. IMPRESSION: Condition improved. Okay for discharge today with plan as above.
--- NOTE | 2017-11-19 16:28 | DISCHARGE SUMMARY REPORT-PSYCH ---
Visit Information Visit Dates/Diagnosis' Admission Date: 11/13/17 Discharge Date: 11/19/17 Reason for Admission: Overdosed with ibuprofen while intoxicated. Psy Discharge Primary Diag: Unspecified depression Psy Discharge Secondary Diag: Alcohol use disorder Hypertension Hyperlipidemia Hypothyroidism Mild COPD Hyponatremia (resolved) Hospital Course Significant Lab Findings: Lab ALT 23 U/L 11/12/172206 AST 54 U/L H 11/12/172206 BUN 23 mg/dL H 11/12/172206 BUN/Creatinine Ratio 32.9 % H 11/12/17 220 Carbon Dioxide 27 mmol/L 11/18/17 0645 Chloride 96 mmol/L L 11/12/172206 Chloride 103 mmol/L 11/18/17 0645 Creatinine 0.7 mg/dL 11/12/172206 Estimated GFR > 60 ml/min 11/12/172206 Glucose 105 mg/dL H 11/12/172206 Potassium 4.5 mmol/L 11/18/1745 Sodium 132 mmol/L L 11/12/172206 Sodium 139 mmol/L 11/15/17 0620 Sodium 140 mmol/L 11/18/17 0645 TSH &T3 &Free T4 Intrp 4.170 uIU/mL 11/12/172206 Absolute Granulocytes 6.9 /CUMM H 11/12/172206 Absolute Monocytes 0.8 /CUMM H 11/12/172206 Hct 34.9 % L 11/12/172206 Hgb 11.9 G/DL L 11/12/172206 Lymphocytes % 17.5 % L 11/12/172206 Plt Count 251 /CUMM 11/12/172206 RBC 4.02 /CUMM L 11/12/172206 WBC 9.7 /CUMM 11/12/172206 Serum Alcohol 100.0 MG/DL 11/12/172206 Course Complications: None. Consultations: The patient was seen by Dr. Lena Peterson for admission H&P. Per Dr. Peterson's note of 11/14/17: "This is a 67-year-old female with a past medical history significant for hypertension, hyperlipidemia, hypothyroidism admitted to the inpatient psychiatry unit for a suicide attempt by overdosing on ibuprofen. Currently she is medically stable. recommendations include to continue her home regimen and consider checking a TSH level if not done recently." Dr. Duvall was aware of discontinuation of HCTZ because of hyponatremia and left a note. Allergies: Coded Allergies: NO KNOWN ALLERGIES (07/25/14) Hospital Course/TX Response: The patient was monitored on the unit for safety, alcohol withdrawal and mood disorder. She participated in multi-modal treatments on the unit. Alcohol detox was uneventful. Hyponatremia could have been due to HCTZ or to Prozac. HCTZ was stopped and hyponatremia resolved. Prozac dose was increased to 50 mg daily. Mood and affect improved. Suicidal ideation remitted. Progress note from date of discharge, 11/19/17: "Case and treatment plan discussed in team meeting. Staff reports that the patient is denying suicidal ideation. Doing very well. Happy to be leaving. Has IOP intake at 1:15 pm. Patient seen at 10:42 AM with medical student. Patient was in group prior to meeting with us in office. Affect is calm and euthymic. States "I'm good." Has no complaints. Reports the overdose "was a stupid thing to do." Mood is fine. Rates sad mood and anxiety both 0/10. Denies feeling hopeless, helpless, worthless or guilty. Denies active and passive suicidal ideation. Denies homicidal ideation. Denies auditory and visual hallucinations and paranoid ideation. Reports she slept a little bit better but has had some difficulty falling asleep here. Reports appetite and energy are fine. Tolerating medications well, without complaint. Plans to go to IOP intake at 1:15 PM and then return to home and son. Feels ready and safe for discharge. IMPRESSION: Condition improved. Okay for discharge today with plan as above." Discharge HBIPS - Tobacco Use Treatment Offered Post DC Medications Offered: Not Applicable Post DC Tobacco Treatment Plan: Not Applicable - EtOH/Drug Use D/O Treatment Offered Post DC Medications Offered: Ref Med EtOH/Drug Use D/O (Refused Antabuse.) Post DC EtOH/SubAbuse [place] Plan: [facility] SubAbuse/Dual IOP Program Appt Date: 11/19/17 Program Appt Time: 1315 Metabolic Screening - Screen if on a Neuroleptic Medication - Metabolic screening should include: - Blood Pressure, BMI, Glucose or Hgb A1c, & a - Lipid profile from within the past 365 days. Metabolic Screening ([x]) Not Applicable, patient not on a neuroleptic. OR () Patient on a neuroleptic(s) . Enter below results for Hemoglobin A1C, and lipid panel if obtained during the last 365 days. BMI: 27.000 Blood Pressure: 120/74 Laboratory Results From [facility] EHR (If applicable): Discharge Instructions General Discharge Information Multiple Neuroleptics: ([x]) Not Applicable OR Document below three failed attempts at monotherapy, or a plan to taper to monotherapy, or augmentation of Clozapine. () Discharge Diet Regular Discharge Activity Normal DC Disposition: Returning to home and son. Referrals Ordered Referrals Intensive Outpt Psy-Substance 11/19/17 [address] [id number] [facility] Intensive Outpatient Services for mental health and substance abuse treatment Intake 11/19/17 1:15pm [address] [id number] Prescriptions Stop taking the following medications: Lisinopril/Hydrochlorothiazide (Lisinopril-Hctz 20-12.5 MG Tab) 20 MG-12.5 MG TABLET ORAL DAILY Qty = 90 Continue taking these medications: Levothyroxine Sodium (Levothyroxine Sodium) 25 MCG TABLET 1 Tablet ORAL [id number] Qty = 100 Comments: Last Taken:11/19/17 Time:7AM Levothyroxine Sodium (Levothyroxine Sodium) 25 MCG TABLET 2 Tablet ORAL SuSa Comments: Last Taken:11/17/17 Time:7AM Atorvastatin Calcium (Atorvastatin Calcium) 40 MG TABLET 1 Tablet ORAL DAILY Qty = 90 Comments: Last Taken:11/19/17 Time:9AM Start taking the following new medications: Lisinopril (Lisinopril) 20 MG TABLET 1 Tablet ORAL DAILY Qty = 14 No Refills Comments: Last Taken:11/19/17 Time:9:30 Gabapentin (Gabapentin) 300 MG CAPSULE 1 Capsule ORAL AT BEDTIME Qty = 14 No Refills Comments: Last Taken:11/18/17 Time:10PM Fluoxetine HCl (Fluoxetine HCl) 10 MG CAPSULE 1 Capsule ORAL DAILY Qty = 14 No Refills Instructions: part of 50 mg total daily dose Comments: Last Taken:11/19/17 Time:9:30 Cholecalciferol (Vitamin D3) 1,000 UNIT TABLET 2 Tablet ORAL DAILY Qty = 28 No Refills Comments: Last Taken:11/19/17 Time:9:30AM Multivitamin (One Daily Multivitamin) 1 EACH TABLET 1 Tablet ORAL DAILY Qty = 14 No Refills Comments: Last Taken:11/19/17 Time:9:30AM The following medications have been changed: Old: Fluoxetine HCl (Fluoxetine HCl) 40 MG CAPSULE 1 Capsule ORAL Every Morning Qty = 90 New: Fluoxetine HCl (Fluoxetine HCl) 40 MG CAPSULE 1 Capsule ORAL Every Morning Qty = 14 Instructions: part of 50 mg todal daily dose Comments: Last Taken:11/19/17 Time:9:30AM Other Inst/Recommendations Stay clean&sober. See PCP about LFTs, sodium, thyroid, general care. Studies Pending at Discharge None. Copies To: Intensive Outpt Psy-Substance; Medardo GARZA,Francisca
== END 2017-11-19 13:15 | DRG 881 ==
LOC: ERH 21:46 → CP SOUTH 11-13 15:46 → ERHI 11-13 15:46 → CP SOUTH 11-13 17:29 → ENRESERV 11-13 23:59 → CP SOUTH 11-14 10:10
PROVIDERS: Physician Assistant
DX: F32.9 Major depressive disorder, single episode, unspecified (principal); E87.1 Hypo-osmolality and hyponatremia; J44.9 Chronic obstructive pulmonary disease, unspecified; Z72.89 Other problems related to lifestyle; I10 Essential (primary) hypertension; E78.5 Hyperlipidemia, unspecified; E03.9 Hypothyroidism, unspecified
CPT/HCPCS: 36415; 80307; G0480; J3490